=== PATIENT | female | born 1980 | race Caucasian/White ===

== ENCOUNTER 2022-11-27 10:10 | Day surgery (SDC) | payer OTHER ==
[~2022-11-27] VITALS: Ht 160 cm; Wt 98.7 kg
[2022-11-27] VITALS (14 sets, daily range): BP systolic 113–138; BP diastolic 54–88
[~2022-11-27 10:10] MED LIST: ACET325 PO; ALBU90OI6 INH; AMIT10; ARIP10 PO; AZIT250 PO; AZIT500; BACL10; BACL20 PO; CIPR100 PO; CIPR500 PO; DIAZ2; DOXY100 PO; EXPECTA PRENAT1 EACH; FAMO20; HYDACE5; HYDACE5 PO; HYDGUAL120 PO; IBUP800; IBUP800 PO; LORPSEER24; MECL25 PO; MEDICAL MARIJUANA INH; NIAC500ER; OMEP20ER PO; OXYACE5T PO; PENVK500 PO; PHENA200 PO; PROC25S PR; PROM25 PO; PROM25S PR; PROP60 PO; RXOXYACE PO; RXPHEN200 PO; RXPROM25 PO; SERT100 PO; SERT50; SULTRIDS PO; [UNRECOGNIZED DRUG - OTHER]; [UNRECOGNIZED DRUG - REMARK]
--- NOTE | 2022-11-27 11:18 | NUR ---
Ambulatory in Day Surgery with walker. History, Chart, Medications and Allergies reviewed before start of procedure. Pre-Op teaching done. Pt verbalizes understanding.
--- NOTE | 2022-11-27 16:54 | NUR ---
PT ARRIVED TO THE ROOM AT 1600. PT DROWSY BUT WAKES EASILY AND IS ORIENTED. PT CLEANED UP AND PLACED ON CLEAN LINEN AFTER SHE VOMITED IN PACU. DANIEL CATH REMOVED UPON ARRIVAL TO ROOM. PAIN AND NAUSEA MANAGED AT THIS TIME. VSS. FAMILY PRESENT FOR SUPPORT.
--- NOTE | 2022-11-27 20:13 | NUR ---
SHIFT SUMMARY PT IS POD#0. PAIN MANAGED WITH PO PAIN MEDICATION. PT TOLERATING PO. PT VOIDING. FAMILY AT BEDSIDE FOR SUPPORT.
[2022-11-28 03:07] VITALS: BP 115/53
[2022-11-28 04:44] LABS: BASOPHILS ABSOLUTE AUTO 0.02 K/mm3 (0.00-0.23); BASOPHILS PERCENT AUTO 0 % (0-2); EOSINOPHILS ABSOLUTE AUTO 0.01 K/mm3 (0.00-0.68); EOSINOPHILS PERCENT AUTO 0 % (0-6); Hematocrit 36.7 % (33.0-51.0); Hemoglobin 12.2 g/dL (11.5-16.0); IMMATURE GRAN ABSOLUTE AUTO 0.03 K/mm3 (0.00-0.10); IMMATURE GRAN PERCENT AUTO 0 % (0-1); LYMPHOCYTES ABSOLUTE AUTO 1.59 K/mm3 (0.84-5.20); LYMPHOCYTES PERCENT AUTO 13 % (21-46); MONOCYTES ABSOLUTE AUTO 0.74 K/mm3 (0.16-1.47); MONOCYTES PERCENT AUTO 6 % (4-13); Mean Corpuscular HGB 28.5 pg (26.0-34.0); Mean Corpuscular HGB Conc 33.2 g/dL (31.5-36.5); Mean Corpuscular Volume 86 fL (80-100); Mean Platelet Volume 12.5 fL (9.1-12.4); NEUTROPHILS PERCENT AUTO 80 % (41-73); Platelet Count 210 K/mm3 (150-400); RDW Coefficient Variation 13.4 % (11.7-14.2); RDW Standard Deviation 41.8 fL (35.1-46.3); Red Blood Cell Count 4.28 M/mm3 (3.80-5.20); White Blood Cell Count 11.89 K/mm3 (4.00-11.30)
--- NOTE | 2022-11-28 04:55 | NUR ---
SHIFT SUMMARY POD1 LTH, [facility] SITES BRAYDEN C/D/I. AOX4. USES WALKER AT BASELINE, HX OF CEREBRAL PALSY. PATIENT IS VOIDING, PASSING GAS AND TOLERATING PAIN MEDICATION. FAMILY IN ROOM FOR COMFORT. DENIES CHEST PAIN, SOB. ABLE TO MAKE NEEDS KNOWN. CALL LIGHT IN REACH WILL REPORT TO DAY RN.
[2022-11-28 07:07] VITALS: BP 131/60
[2022-11-28] MEDS ORDERED: DOCU100 PO (10:21)
[2022-11-28] MEDS ORDERED: ESTR2 PO (10:21)
[2022-11-28] MEDS ORDERED: Percocet 5-3251 EACH PO (10:22)
[2022-11-28] MEDS ORDERED: SIME80CH PO (10:22)
[2022-11-28] MEDS ORDERED: PROM25 PO (10:22)
--- NOTE | 2022-11-28 10:41 | NUR ---
DISCHARGE NOTE: PATIENT AND FAMILY WERE EDUCATED ON DISCHARGE INSTRUCTIONS. ALL VERBALIZED UNDERSTANDING OF INSTRUCTIONS AND HAD NO FURTHER QUESTIONS AT THIS TIME. IV WAS TAKEN OUT AND WNL. PAIN IS MANAGED WITH ORAL PAIN MEDICATIONS. HER ABD HAS X4 LAP SITES WITH WOUND GLUE THAT ARE ALL C/D/I. PATIENT DENIES NAUSEA OR VOMITING. PATIENTS ESTROGEN TABLET WAS FAXED TO THEIR PREFERRED PHARMACY WHICH IS [facility] IN [place]. PATIENT WAS ABLE TO SHOWER AND IS NOW DRESSED WITH PERSONAL ITEMS IN THE ROOM GATHERED. PATIENT IS BEING WHEELCHAIRED OUT TO HER [employer] CAR TO BE TAKEN HOME. PATIENT IS TOLERATING PO INTAKE AND IS VOIDING/PASSING GAS.
== END 2022-11-28 10:44 | disposition home or self-care (01) ==
LOC: ORSCMMR 10:10 → ORD 11:30 → ORSCMMR 11:30 → SURS 15:46 → ORSCMMR 11-28 10:44
PROVIDERS: Obstetrics & Gynecology
PROC: 8E0W4CZ Robotic Assisted Procedure of Trunk Region, Percutaneous Endoscopic Approach (ICD-10-PCS; principal; 2022-11-27 12:30)
PROC: 0U5F4ZZ Destruction of Cul-de-sac, Percutaneous Endoscopic Approach (ICD-10-PCS; principal; 2022-11-27 12:30)
PROC: 0UT2FZZ Resection of Bilateral Ovaries, Via Natural or Artificial Opening With Percutaneous Endoscopic Assistance (ICD-10-PCS; principal; 2022-11-27 12:30)
PROC: 0UT9FZZ Resection of Uterus, Via Natural or Artificial Opening With Percutaneous Endoscopic Assistance (ICD-10-PCS; principal; 2022-11-27 12:30)
DX: N80.00 Endometriosis of the uterus, unspecified (principal); N80.9 Endometriosis, unspecified; N94.6 Dysmenorrhea, unspecified; R10.2 Pelvic and perineal pain; N83.11 Corpus luteum cyst of right ovary; N73.6 Female pelvic peritoneal adhesions (postinfective); E66.01 Morbid (severe) obesity due to excess calories; Z68.41 Body mass index [BMI] 40.0-44.9, adult; G80.8 Other cerebral palsy; Z79.899 Other long term (current) drug therapy
CPT/HCPCS: 58571; 58662; S2900; 36415; 85025; 88307; A9270; J0295; J0780; J1100; J1885; J2250; J2371; J2405; J2704; J3010; J7120